=== PATIENT | male | born 1995 | race Caucasian/White ===

== ENCOUNTER 2019-09-03 11:19 | Emergency (ER) | payer OTHER ==
[~2019-09-03] VITALS: Ht 175.3 cm; Wt 116.7 kg
[2019-09-03] MEDS ORDERED: LIDOCAINE 2% MDV 20 ML VIAL SC ONE (12:30)
[2019-09-03 12:59] VITALS: BP 143/79
== END 2019-09-03 13:05 | disposition home or self-care (01) ==
LOC: M ED 11:19
DX: S61.216A Laceration without foreign body of right little finger without damage to nail, initial encounter (principal); W26.0XXA Contact with knife, initial encounter; Y92.018 Other place in single-family (private) house as the place of occurrence of the external cause; F17.210 Nicotine dependence, cigarettes, uncomplicated

== ENCOUNTER 2021-03-30 19:59 | Emergency (ER) | payer OTHER ==
[~2021-03-30] VITALS: Ht 175.3 cm; Wt 103.9 kg
[2021-03-30 20:00] VITALS: BP 145/83
--- OUTSIDE RECORDS SUMMARY | 2021-03-30 20:05 | CCD ---
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 Name Role Phone EVERDING, Luca ARTEAGA MD Unavailable Unavailable EVERDING, Luca ARTEAGA MD Unavailable Unavailable EVERDING, Luca ARTEAGA MD Unavailable Unavailable EVERDING, Luca ARTEAGA MD Unavailable Unavailable EVERDING, Luca ARTEAGA MD Unavailable Unavailable EVERDING, Luca ARTEAGA MD Unavailable Unavailable EVERDING, Luca ARTEAGA MD Unavailable Unavailable EVERDING, Luca ARTEAGA MD Unavailable Unavailable EVERDING, Luca ARTEAGA MD Unavailable Unavailable EVERDING, Luca ARTEAGA MD Unavailable Unavailable EVERDING, Luca ARTEAGA MD Unavailable Unavailable EVERDING, Luca ARTEAGA MD Unavailable Unavailable EVERDING, Luca ARTEAGA MD Unavailable Unavailable EVERDING, Luca ARTEAGA MD Unavailable Unavailable EVERDING, Luca ARTEAGA MD Unavailable Unavailable EVERDING, Luca ARTEAGA MD Unavailable Unavailable EVERDING, Luca ARTEAGA MD Unavailable Unavailable EVERDING, Luca ARTEAGA MD Unavailable Unavailable EVERDING, Luca ARTEAGA MD Unavailable Unavailable EVERDING, Luca ARTEAGA MD Unavailable Unavailable EVERDING, Luca ARTEAGA MD Unavailable Unavailable EVERDING, Luca ARTEAGA MD Unavailable Unavailable EVERDING, Luca ARTEAGA MD Unavailable Unavailable EVERDING, Luca ARTEAGA MD Unavailable Unavailable EVERDING, Luca ARTEAGA MD Unavailable Unavailable EVERDING, Luca ARTEAGA MD Unavailable Unavailable EVERDING, Luca ARTEAGA MD Unavailable Unavailable EVERDING, Luca ARTEAGA MD Unavailable Unavailable EVERDING, Luca ARTEAGA MD Unavailable Unavailable EVERDING, Luca ARTEAGA MD Unavailable Unavailable EVERDING, Luca ARTEAGA MD Unavailable Unavailable EVERDING, Luca ARTEAGA MD Unavailable Unavailable EVERDING, Luca ARTEAGA MD Unavailable Unavailable EVERDING, Luca ARTEAGA MD Unavailable Unavailable EVERDING, Luca ARTEAGA MD Unavailable Unavailable EVERDING, Luca ARTEAGA MD Unavailable Unavailable EVERDING, Luca ARTEAGA MD Unavailable Unavailable EVERDING, G CHANDLER MD Unavailable Unavailable EVERDING, G CHANDLER MD Unavailable Unavailable EVERDING, G CHANDLER MD Unavailable Unavailable EVERDING, G CHANDLER MD Unavailable Unavailable EVERDING, G CHANDLER MD Unavailable Unavailable EVERDING, G CHANDLER MD Unavailable Unavailable EVERDING, G CHANDLER MD Unavailable Unavailable EVERDING, G CHANDLER MD Unavailable Unavailable EVERDING, G CHANDLER MD Unavailable Unavailable EVERDING, G CHANDLER MD Unavailable Unavailable EVERDING, G CHANDLER MD Unavailable Unavailable EVERDING, G CHANDLER MD Unavailable Unavailable EVERDING, G CHANDLER MD Unavailable Unavailable EVERDING, G CHANDLER MD Unavailable Unavailable EVERDING, G CHANDLER MD Unavailable Unavailable EVERDING, G CHANDLER MD Unavailable Unavailable EVERDING, G CHANDLER MD Unavailable Unavailable EVERDING, G CHANDLER MD Unavailable Unavailable EVERDING, G CHANDLER MD Unavailable Unavailable EVERDING, G CHANDLER MD Unavailable Unavailable EVERDING, G CHANDLER MD Unavailable Unavailable EVERDING, G CHANDLER MD Unavailable Unavailable EVERDING, G CHANDLER MD Unavailable Unavailable EVERDING, G CHANDLER MD Unavailable Unavailable EVERDING, G CHANDLER MD Unavailable Unavailable EVERDING, G CHANDLER MD Unavailable Unavailable EVERDING, G CHANDLER MD Unavailable Unavailable EVERDING, G CHANDLER MD Unavailable Unavailable EVERDING, G CHANDLER MD Unavailable Unavailable EVERDING, G CHANDLER MD Unavailable Unavailable EVERDING, G CHANDLER MD Unavailable Unavailable EVERDING, G CHANDLER MD Unavailable Unavailable EVERDING, G CHANDLER MD Unavailable Unavailable EVERDING, G CHANDLER MD Unavailable Unavailable EVERDING, G CHANDLER MD Unavailable Unavailable EVERDING, G CHANDLER MD Unavailable Unavailable EVERDING, G CHANDLER MD Unavailable Unavailable EVERDING, G CHANDLER MD Unavailable Unavailable EVERDING, G CHANDLER MD Unavailable Unavailable EVERDING, G CHANDLER MD Unavailable Unavailable EVERDING, G CHANDLER MD Unavailable Unavailable EVERDING, G CHANDLER MD Unavailable Unavailable EVERDING, G CHANDLER MD Unavailable Unavailable EVERDING, G CHANDLER MD Unavailable Unavailable DAIGLE,, MOE MOHAMUD Unavailable Unavailable DAIGLE,, MOE MOHAMUD Unavailable Unavailable DAIGLE,, MOE MOHAMUD Unavailable Unavailable DAIGLE,, MOE MOHAMUD Unavailable Unavailable DAIGLE,, MOE MOHAMUD Unavailable Unavailable DAIGLE,, MOE MOHAMUD Unavailable Unavailable DAIGLE,, MOE MOHAMUD Unavailable Unavailable DAIGLE,, MOE MOHAMUD Unavailable Unavailable DAIGLE,, MOE MOHAMUD Unavailable Unavailable DAIGLE,, MOE MOHAMUD Unavailable Unavailable DAIGLE,, MOE MOHAMUD Unavailable Unavailable DAIGLE,, MOE MOHAMUD Unavailable Unavailable DAIGLE,, MOE MOHAMUD Unavailable Unavailable NUNO, C NILES PA Unavailable Unavailable NUNO, C NILES PA Unavailable Unavailable NUNO, C NILES PA Unavailable Unavailable NUNO, C NILES PA Unavailable Unavailable NUNO, C NILES PA Unavailable Unavailable NUNO, C NILES PA Unavailable Unavailable NUNO, C NILES PA Unavailable Unavailable NUNO, C NILES PA Unavailable Unavailable NUNO, C NILES PA Unavailable Unavailable NUNO, C NILES PA Unavailable Unavailable NUNO, C NILES PA Unavailable Unavailable NUNO, C NILES PA Unavailable Unavailable NUNO, C NILES PA Unavailable Unavailable NUNO, C NILES PA Unavailable Unavailable NUNO, C NILES PA Unavailable Unavailable NUNO, C NILES PA Unavailable Unavailable NUNO, C NILES PA Unavailable Unavailable NUNO, C NILES PA Unavailable Unavailable NUNO, C NILES PA Unavailable Unavailable NUNO, C NILES PA Unavailable Unavailable NUNO, C NILES PA Unavailable Unavailable NNUO, C NILES PA Unavailable Unavailable NUNO, C NILES PA Unavailable Unavailable NUNO, C NILES PA Unavailable Unavailable NUNO, C NILES PA Unavailable Unavailable NUNO, C NILES PA Unavailable Unavailable NUNO, C NILES PA Unavailable Unavailable NUNO, C NILES PA Unavailable Unavailable NUNO, C NILES PA Unavailable Unavailable NUNO, C NILES PA Unavailable Unavailable NUNO, C NILES PA Unavailable Unavailable NUNO, C NILES PA Unavailable Unavailable NUNO, C NILES PA Unavailable Unavailable NUNO, C NILES PA Unavailable Unavailable NUNO, C NILES PA Unavailable Unavailable NUNO, C NILES PA Unavailable Unavailable NUNO, C NILES PA Unavailable Unavailable NUNO, C NILES PA Unavailable Unavailable NUNO, C NILES PA Unavailable Unavailable NUNO, C NILES PA Unavailable Unavailable NUNO, C NILES PA Unavailable Unavailable Guicho Daigle MD Unavailable Unavailable Re-disclosure Warning The records that you are about to access may contain information from federally-assisted alcohol or drug abuse programs. If such information is present, then the following federally mandated warning applies: This information has been disclosed to you from records protected by federal confidentiality rules (42 CFR part 2). The federal rules prohibit you from making any further disclosure of this information unless further disclosure is expressly permitted by the written consent of the person to whom it pertains or as otherwise permitted by 42 CFR part 2. A general authorization for the release of medical or other information is NOT sufficient for this purpose. The Federal rules restrict any use of the information to criminally investigate or prosecute any alcohol or drug abuse patient.The records that you are about to access may contain highly sensitive health information, the redisclosure of which is protected by Article 27-F of the [facility] Public Health law. If you continue you may have access to information: Regarding HIV / AIDS; Provided by facilities licensed or operated by the [facility] Office of Mental Health; or Provided by the [facility] Office for People With Developmental Disabilities. If such information is present, then the following [facility] mandated warning applies: This information has been disclosed to you from confidential records which are protected by state law. State law prohibits you from making any further disclosure of this information without the specific written consent of the person to whom it pertains, or as otherwise permitted by law. Any unauthorized further disclosure in violation of state law may result in a fine or assisted sentence or both. A general authorization for the release of medical or other information is NOT sufficient authorization for further disc losure. Encounters Encounter Providers Location Date Indications Data Source(s ) Recurring Patient Referrer: Mohamud Daigle MD 05/24/2020 08:50 :21 AM EST [facility] Outpatient Attender: CHANDLER BRISENOeferrer: MOHAMUD DAIGLE 03/01/2020 10:59:50 PM EDT [facility] Outpatient Attender: NILES Davies: MOHAMUD DAIGLE 01/30/2020 03:31:02 PM EDT [facility] Medications No Information Insurance Providers Payer name Policy type / Coverage type Policy ID Covered green party ID Covered green party's relationship to yates Policy Yates Plan Information [facility] F [id number] SELF [id number] [facility] F [id number] [facility] [id number] [facility] [employer]IVE DUTY [id number] Problems, Conditions, and Diagnoses No Information Surgeries/Procedures No Information Results ID Date Data Source [id number] 03/01/2020 10:59:50 PM EDT [facility] Baltazar Eastman: 1995Provider: Lauren Dela Cruz: 02/29/2020 History of Present IllnessCHIEF COMPLAINTFollow- up of the right hand.HISTORY OF PRESENT ILLNESSThis is a 24-year-old iulxq-wlzx-tpvqaoxq male who comes in today for follow-up status post right small finger FDP repair and small finger tenolysis. This was performed on 11/26/2019. He is currently 3 months postop. The patient states the right hand is pretty good. He is experiencing minimal pain. The patient is able to utilize the right hand for most activities. He has not attempted to utilize the right hand for activities. The patient is engaged in physical therapy. AssessmentSOS Assessment Dragon Form: ASSESSMENTRight hand status post right small finger flexor digitorum profundus repair and right small finger tenolysis. Plan PT/OT/Hand Therapy (SOS) Referral Treatment Treatment Status: Complete Done:[id number] Ordered;For: Adhesion of tendon of right hand, Laceration of finger, Laceration of flexor tendon of hand; Ordered By: Chandler Dela Cruz Performed: Order Comments: DOS 11/26/2019 Rt small finger secondary repair of FDP tendon in zone II without tendon graft; Rt small finger FDS tenolysis Surgery was performed by Chandler Dela Cruz MD Start full Strengthening Due: [id number]; Last Updated By: Josué Julian; 02/29/2020 1:07:47 PMPT/OT/Hand Therapy Duration : Six WeeksPT Frequency : Two or three times a week Work Note (SOS) Treatment Treatment Status: Complete Done: [id number] Ordered;For: Examination; Ordered By: Chandler Dela Cruz Performed: Due: [id number]; Last Updated By: Josué Julian; 02/29/2020 1:09:41 PMRestrictions : noneWorks Status : Patient to resume full dutySeen Today for Evaluation and Treatment : The patient was seen today in the office for evaluation and treatment. Susan is a 24-year-old wtvyl-edcr-dtlswreb male 3 months status post right small finger FDP repair and right small finger tenolysis. This was performed on 11/26/2019. The patient is doing well. He has good motion of the right small finger. He lacks active flexion of the DIP joint, but does have active function of the FDP tendon. We will continue to work on physical therapy for range of motion. He can start full strengthening with physical therapy and return to full activity without restrictions. We will see him back in 3 months to assess his progress. Scribed by Mercedes Camargo on 02/29/2020 at 09:07 PM for Everding, Chandler Signatures Electronically signed by : Jethro Camargo MA; Feb 29 2020 9:08PM EST (Author) Electronically signed by : Chandler Dela Cruz M.D.; Mar 01 2020 10:59PM EST Name Value Range Interpretation Code Description Data Elis rce(s) Supporting Document(s) Procedure Social History No Information
[2021-03-30] MEDS ORDERED: ATOM40CA16 PO (20:10)
[2021-03-31] MEDS ORDERED: LIDOCAINE 1% MDV 20ML VIAL SC ONE (00:45)
--- OUTSIDE RECORDS SUMMARY | 2021-03-31 02:00 | CCD ---
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 Name Role Phone EVERDING, Luca ARTEAGA MD [...] DAIGLE,, MOE MOHAMUD Unavailable Unavailable DAIGLE,, MOE MOHAUMD Unavailable Unavailable DAIGLE,, MOE MOHAMUD Unavailable Unavailable DAIGLE,, MOE MOHAMUD Unavailable Unavailable DAIGLE,, MOE MOHAMUD Unavailable Unavailable DAIGLE,, MOE MOHAMUD Unavailable Unavailable DAIGLE,, MOE MOHAMUD Unavailable Unavailable DAIGLE,, MOE MOHAMUD Unavailable Unavailable DAIGLE,, MOE MOHAMUD Unavailable Unavailable DAIGEL,, MOE MOHAMUD Unavailable Unavailable DAIGLE,, MOE MOHAMUD [...] protected by Article 27-F of the [facility] Public Health law. If you continue you may have access to information: Regarding HIV / AIDS; Provided by facilities licensed or operated by the [facility] Office of Mental Health; or Provided by the [facility] Office for People With Developmental Disabilities. If such information is present, then the following [facility] mandated warning applies: This information has [...] law may result in a fine or [place] [facility] [place] [facility] sentence or both. A general authorization for the release of medical or other information is NOT sufficient authorization for further disc losure. Encounters Encounter Providers Location Date Indications Data Source(s ) Recurring Patient Referrer: Mohamud Daigle MD 05/24/2020 08:50 :21 AM EST [facility] Outpatient Attender: CHANDLER BRISENOeferrer: MOHAMUD DAIGLE 03/01/2020 10:59:50 PM EDT [facility] Outpatient Attender: NILES Davies: MOHAMUD DAIGLE 01/30/2020 03:31:02 PM EDT [facility] Medications No Information Insurance Providers Payer name Policy type / Coverage type Policy ID Covered constitution party ID Covered constitution party's relationship to yates Policy Yates Plan Information [facility] F [id number] SELF [id number] [facility] F [id number] [facility] [id number] [facility] [id number] Problems, Conditions, and Diagnoses No Information Surgeries/Procedures No Information Results ID Date Data Source [id number] 03/01/2020 10:59:50 PM EDT [facility]: 1995Provider: Lauren Dela Cruz: 02/29/2020 History of Present IllnessCHIEF COMPLAINTFollow- up of the right hand.HISTORY OF PRESENT ILLNESSThis is a 24-year-old slhfj-otak-gsdqtpdr male who comes in today for follow-up [...] Therapy (SOS) Referral Treatment Treatment Status: Complete Done:[id number] Ordered;For: Adhesion of tendon of right hand, Laceration of finger, Laceration of flexor tendon of hand; Ordered By: Chandler Dela Cruz Performed: Order Comments: DOS 11/26/2019 Rt small finger secondary repair of FDP tendon in zone II without tendon graft; Rt small finger FDS tenolysis Surgery was performed by Chandler Dela Cruz MD Start full Strengthening Due: [id number]; Last Updated By: Josué Julian; 02/29/2020 1:07:47 PMPT/OT/Hand Therapy Duration : Six WeeksPT Frequency : Two or three times a week Work Note (SOS) Treatment Treatment Status: Complete Done: [id number] Ordered;For: Examination; Ordered By: Chandler Dela Cruz Performed: Due: [id number]; Last Updated By: Josué Julian; 02/29/2020 1:09:41 PMRestrictions : noneWorks Status : Patient to resume full dutySeen Today for Evaluation and Treatment : The patient was seen today in the office for evaluation and treatment. Susan is a 24-year-old txtjr-kvch-wzglwmux male 3 months status post right small [...]
[2021-03-31] MEDS ORDERED: BACITRACIN OINTMENT 30GM TUBE TOP ONE (03:05)
== END 2021-03-31 03:21 | disposition home or self-care (01) ==
LOC: M ED 19:59
DX: S61.012A Laceration without foreign body of left thumb without damage to nail, initial encounter (principal); W26.0XXA Contact with knife, initial encounter; Y92.018 Other place in single-family (private) house as the place of occurrence of the external cause; F90.9 Attention-deficit hyperactivity disorder, unspecified type; F17.210 Nicotine dependence, cigarettes, uncomplicated